=== PATIENT | male | born 2000 | race Caucasian/White ===

== ENCOUNTER 2022-07-19 11:01 | Emergency (ER) | payer OTHER, SELFPAY ==
[2022-07-19 11:35] VITALS: BP 151/81; PULSE 76; RESP 16; TEMP 36.4; O2SAT 98
--- NOTE | 2022-07-19 12:14 | ED.EYEPROB ---
HPI - Eye Problem General Chief complaint: Eye Problems Stated complaint: eye irritation Time Seen by Provider: 07/19/22 12:15 Source: patient Mode of arrival: ambulatory Limitations: no limitations History of Present Illness HPI Narrative: 21-year-old male presented for complaint of bilateral eye redness and irritation for the last 2 days. He endorses he slept in his contacts the night before symptoms started. He states he woke with eyes feeling very dry, and he now has light sensitivity and clear drainage/tearing frequently. The contacts are not to be slept in, and are changed [id number]. Denies pus or crust to the eyes vision changes, headache, nausea, vomiting, fevers or chills. He has not applied anything to his eyes. He has not been wearing his contact lenses. He denies sick contacts. MD chief complaint: eye pain Related Data Allergies Allergy/AdvReac Type Severity Reaction Status Date / Time No Known Allergies Allergy Verified 07/19/22 12:00 Review of Systems Review of Systems: CONSTITUTIONAL: Denies body aches, fever, chills EYES: Per HPI ENT: Denies rhinorrhea, congestion, sore throat, or otalgia. CARDIOVASCULAR: Denies chest pain, palpitations RESPIRATORY: Denies cough or dyspnea. GASTROINTESTINAL: Denies abdominal pain, nausea, vomiting, or diarrhea. SKIN: Denies rash, itching, or wounds. MUSCULOSKELETAL: Denies back pain, joint pain, or myalgia. NEUROLOGIC: Denies headache, numbness, tingling, or weakness. All systems reviewed & are unremarkable except as noted in HPI and below PMFSH Past Medical History Medical History No pertinent past medical history Comments At time of signature, I have reviewed and agree with nursing past medical, surgical, social and family history unless otherwise noted. Please see nursing chart for further information. There is no relevant family history pertinent to the presenting complaint Exam Narrative: GENERAL: Well-appearing HEAD: Normocephalic, atraumatic. EYES: bilateral conjunctival injection, No purulent drainage; mild periorbital swelling, left worse than right. PERRLA, EOMI. Lid eversion shows no foreign bodies. No corneal abrasion. ENT: Mucous membranes pink and moist. No rhinorrhea. TMs normal bilaterally. Throat normal. Uvula midline. CHEST: Clear to auscultation. HEART: Regular rate and rhythm. ABDOMEN: Soft, nontender, nondistended SKIN: Warm, dry, no rash. Normal skin turgor. Course Course Emergency Course: Patient is aware of diagnosis, understands and agrees to treatment plan. Anticipatory guidance given. Patient agrees to follow-up as directed and is aware of reasons to seek care at the emergency department. Portions of this record may have been created with voice recognition software Level of Care: Express Care Visit Vital Signs Vital signs: Vital Signs Temperature 97.6 F 07/19/22 11:35 Pulse Rate 76 07/19/22 11:35 Respiratory Rate 16 07/19/22 11:35 Blood Pressure 151/81 H 07/19/22 11:35 Pulse Oximetry 98 07/19/22 11:35 Oxygen Delivery Room Air 07/19/22 11:35 Temperature 97.6 F 07/19/22 11:35 Pulse Rate 76 07/19/22 11:35 Respiratory Rate 16 07/19/22 11:35 Blood Pressure 151/81 H 07/19/22 11:35 Pulse Oximetry 98 07/19/22 11:35 Oxygen Delivery Room Air 07/19/22 11:35 Procedures FB Removal Eye Foreign Body #1: Foreign Body Removal Date: 07/19/22 Topical anesthetic used: tetracaine Foreign body: other (none) Evidence of corneal penetration: No Technique: irrigation and eye wash bottle Procedure performed under: other (ford lamp) Patient tolerated procedure: well and no complications Foreign Body Removal Narrative: no corneal abrasion on exam. MDM - Eye Problem MDM Narrative Medical decision making narrative: PE c/w conjunctivitis likely 2/2 sleeping in contacts. Advi
== END 2022-07-19 12:38 | disposition home or self-care (01) ==
PROVIDERS: Emergency Provider Nurse Practitioner Family; PCP Internal Medicine
DX: H10.9 Unspecified conjunctivitis (principal); F41.9 Anxiety disorder, unspecified; F32.A Depression, unspecified; F90.9 Attention-deficit hyperactivity disorder, unspecified type; Z86.16 Personal history of COVID-19
CPT/HCPCS: 99213; A9270; G0463

== ENCOUNTER 2023-01-18 11:51 | Emergency (ER) | payer OTHER, SELFPAY ==
[2023-01-18 12:02] VITALS: BP 136/74; PULSE 56; RESP 16; TEMP 36.4; O2SAT 100
--- NOTE | 2023-01-18 12:05 | PC.NURSE ---
Pt.stated refused visual acuity because He cant open left eye & everything is blurry.
--- NOTE | 2023-01-18 12:16 | ED.EYEPROB ---
HPI - Eye Problem General Chief complaint: Eye Problems Stated complaint: Lt Eye Irritation Time Seen by Provider: 01/18/23 12:16 Source: patient, RN notes reviewed and old records reviewed Mode of arrival: ambulatory Limitations: no limitations History of Present Illness HPI Narrative: 22-year-old male presents to the [facility] with complaints of left eye irritation. Patient states the pain started at 11:00 p.m. last night. Does normally wear contact lenses. Denies any trauma. States that does not stop tearing Was prescribed ketorolac eyedrops approximately 6 months ago, started using them. Believes he is up-to-date on his tetanus Treatments Prior to Arrival: other (old RX -ketorolac) Related Data Patient tetanus UTD: Yes Home Medications Medication Instructions Recorded Confirmed escitalopram oxalate 20 mg tablet 20 mg PO DAILY 07/19/22 01/18/23 (Lexapro) methylphenidate HCl 20 mg 20 mg PO QAM 07/19/22 01/18/23 tablet,extended release Allergies Allergy/AdvReac Type Severity Reaction Status Date / Time No Known Allergies Allergy Verified 01/18/23 11:58 Review of Systems Review of Systems: All systems reviewed & are unremarkable except as noted in HPI and below Constitutional: Constitutional: Reports no additional constitutional complaints Eyes: Eyes: Reports as per HPI, Denies blurry vision, Denies exophthalmos, Denies change in vision, Reports irritation, Reports eye pain and Reports photophobia ENT: Reports system reviewed and no additional complaints, except as documented Cardiovascular: Cardiovascular: Reports no additional cardiovascular complaints, Denies chest pain and Denies dyspnea Respiratory: Respiratory: Reports no additional respiratory complaints, Denies chest congestion, Denies cough and Denies dyspnea Gastrointestinal: Gastrointestinal: Reports no additional gastrointestinal complaints, Denies abdominal pain, Denies nausea and Denies vomiting Musculoskeletal: Musculoskeletal: Reports no additional musculoskeletal complaints Integumentary/Breasts: Skin/Breast: Reports system reviewed and no additional complaints, except as docu Neurologic: Reports system reviewed and no additional complaints, except as documented Psychiatric: Psychiatric: Reports no additional psychiatric complaints Allergic/Immunologic: Allergic/Immunologic: Reports no additional allergic/immunologic complaints PMFSH Past Medical History Medical History No pertinent past medical history Comments At the time of my signature, I reviewed and agree with the nursing past medical, surgical, social, and family history. There is no relevant family history pertinent to the patient complaint. Exam Const: General: cooperative, healthy appearing, comfortable, no acute distress, well developed, alert and well nourished Nutritional Appearance: well nourished Orientation/consciousness: patient oriented x3 Limitations: no limitations HENMT: Head: normal to inspection Ears: hearing grossly normal bilaterally and external ears normal Face/Nose/Sinus: Normal external nose present, Normal nares present, Normal nasal mucous membranes and turbinates present and normal facial exam Face and sinus: normal facial exam Eyes: General: appearance normal, both eyes and all related structures Alignment and Position: alignment normal Periorbital: periorbital findings normal Conjunctivae: conjunctivae normal Sclera: sclerae normal Cornea: corneas abnormal on the left abrasion curved and at the following clock position (6) and fluorescein used Pupils: Equal, round and reactive pupils present EOM: EOMs intact bilaterally Eyes/upper lids images: 1. Semi circular abrasion to the cornea noted Neck: Neck: normal visual inspection, full ROM, no lymphadenopathy and no meningeal signs Chest: Chest palpation & inspection: normal inspection of the chest Resp: Effort & Inspection:
== END 2023-01-18 12:32 | disposition home or self-care (01) ==
PROVIDERS: Emergency Provider Nurse Practitioner; PCP Internal Medicine
DX: S05.02XA Injury of conjunctiva and corneal abrasion without foreign body, left eye, initial encounter (principal); X58.XXXA Exposure to other specified factors, initial encounter; Z86.16 Personal history of COVID-19; F41.9 Anxiety disorder, unspecified; F32.A Depression, unspecified; F90.9 Attention-deficit hyperactivity disorder, unspecified type
CPT/HCPCS: 99213; A9270; G0463

== ENCOUNTER 2023-05-07 09:40 | Emergency (ER) | payer OTHER, SELFPAY ==
[2023-05-07 10:09] VITALS: BP 138/95; PULSE 65; RESP 18; TEMP 36.7; O2SAT 100
--- NOTE | 2023-05-07 10:39 | ED.URI ---
HPI - URI/Sore Throat General Chief Complaint: Upper Respiratory Infection Stated Complaint: throat irritation History of Present Illness HPI Narrative: 22-year-old male presented for complaint of sore throat for 3 days. Endorses painful swallow. History of strep infections, states this feels similar. He denies any associated symptoms. Not taking anything for symptoms Related Data Allergies Allergy/AdvReac Type Severity Reaction Status Date / Time orange (food color) AdvReac Hives Verified 05/07/23 10:41 Review of Systems Review of Systems: CONSTITUTIONAL: Denies body aches, fever, chills, or sweats. EYES: Denies visual changes, redness, or discharge. ENT: reports sore throat Denies rhinorrhea, congestion, or otalgia. CARDIOVASCULAR: Denies chest pain, palpitations, or edema. RESPIRATORY: Denies dyspnea. GASTROINTESTINAL: Denies abdominal pain, nausea, vomiting, or diarrhea. SKIN: Denies rash, itching, or wounds. MUSCULOSKELETAL: Denies back pain, joint pain, or myalgia. NEUROLOGIC: Denies headache PMFSH Past Medical History Medical History No pertinent past medical history Exam Narrative: GENERAL: mildly Ill-appearing, no acute distress. EYES: conjunctivae clear ENT: Mucous membranes moist. TM pearly marks with normal light reflex bilaterally; no tragal tenderness. Oropharynx severely erythematous without lesions. Tonsils 1+ without exudate. No drooling, no hoarseness, no trismus, uvula midline. No tripod positioning, hot potato voice, or soft palate swelling. NECK: Supple. No lymphadenopathy CHEST: Clear to auscultation, breath sounds equal. No respiratory distress, speaks in full sentences. HEART: Regular rate and rhythm. No murmur heard. SKIN: Warm, dry, no rash. NEURO: Alert and oriented x3. Course Course Emergency Course: Patient is aware of diagnosis, understands and agrees to treatment plan. Anticipatory guidance given. Patient agrees to follow-up as directed and is aware of reasons to seek care at the emergency department. Portions of this record may have been created with voice recognition software Level of Care: Express Care Visit Vital Signs Vital signs: Vital Signs Temperature 98.1 F 05/07/23 10:09 Pulse Rate 65 05/07/23 10:09 Respiratory Rate 18 05/07/23 10:09 Blood Pressure 138/95 H 05/07/23 10:09 Pulse Oximetry 100 05/07/23 10:09 Oxygen Delivery Room Air 05/07/23 10:09 Temperature 98.1 F 05/07/23 10:09 Pulse Rate 65 05/07/23 10:09 Respiratory Rate 18 05/07/23 10:09 Blood Pressure 138/95 H 05/07/23 10:09 Pulse Oximetry 100 05/07/23 10:09 Oxygen Delivery Room Air 05/07/23 10:09 MDM - URI/Sore Throat MDM Narrative Medical decision making narrative: Deferred strep testing, will treat based on PE and CC. Advise supportive treatments. Patient is appropriate for outpatient treatment and follow-up. Differential Diagnosis Differential diagnosis: Likely upper respiratory infection, viral infection and pharyngitis Discharge Plan Discharge Clinical Impression: Pharyngitis Patient Disposition: Home, Self-Care Condition: Stable Instructions: Antibiotic Form, Strep Throat (ED) Additional Instructions: - Take the antibiotic as directed. Fever and sore throat typically resolve within one to three days. Most patients can return to work, after 12 to 24 hours of antibiotic therapy, provided you are fever free and otherwise well. -Eat and drink things that are easy to swallow, like soft foods, cool liquids, tea with honey, or popsicles . -Salt water gargles and/or may use topical anesthetic ( Chloraseptic spray) or lozenges to relieve dryness or throat pain -Alternate Tylenol and ibuprofen as needed for pain and fever as directed. -Frequent hand washing or hand fire sprinkler installer is one of the best ways to prevent spread of infection. Throw away the toothbrush after 24hours of a
== END 2023-05-07 10:48 | disposition home or self-care (01) ==
PROVIDERS: Emergency Provider Nurse Practitioner Family; PCP Internal Medicine
DX: J02.9 Acute pharyngitis, unspecified (principal)
CPT/HCPCS: 99213; G0463

== ENCOUNTER 2023-08-01 08:04 | Emergency (ER) | payer OTHER, SELFPAY ==
[2023-08-01 08:11] VITALS: BP 148/73; PULSE 84; RESP 16; TEMP 37; O2SAT 99
--- NOTE | 2023-08-01 08:13 | ED.GENADULT ---
HPI - General Adult General Chief complaint: Upper Respiratory Infection Stated complaint: Sinus Infection and Tooth Pain Source: patient, RN notes reviewed and old records reviewed Mode of arrival: ambulatory Limitations: no limitations History of Present Illness HPI narrative: 22 year old male who presents to clinic with complaints of sinus congestion, facial pressure, headache, sinus drainage and also cough starting Tuesday. Patient states he has been taking Mucinex a.m. and p.m. and also ibuprofen and has use Flonase nasal spray. Patient does have history of strep throat 2 months ago and previous sinusitis. Patient reports that he has had sweats and felt hot but has not taken his temperature.Patient reports that he has pressure to his front teeth from his sinus problems. MD complaint: sinus congestion drainage, headache sinus pressure Onset (ago): day(s) (3) Severity: moderate Treatments prior to arrival: NSAID and other (Mucinex am and PM and Flonase) Related Data Allergies Allergy/AdvReac Type Severity Reaction Status Date / Time orange (food color) AdvReac Mild Hives Verified 08/01/23 08:12 Review of Systems Review of Systems: CONSTITUTIONAL: Denies malaise, chills,reports sweats, unknown if fever. EYES: Denies visual changes, redness, or discharge. ENT: Reports rhinorrhea, congestion, sinus pain, no otalgia and no sore throat, pressure front teeth CARDIOVASCULAR: Denies chest pain, palpitations, or edema. RESPIRATORY: Reports cough.? Denies dyspnea. GASTROINTESTINAL: Denies abdominal pain, nausea, vomiting, diarrhea SKIN: Denies rash or itching. MUSCULOSKELETAL: Denies myalgia. NEUROLOGIC: Reports headache. All systems reviewed & are unremarkable except as noted in HPI and below PMFSH Past Medical History Medical History ADHD (attention deficit hyperactivity disorder) Anxiety and depression Fracture of left wrist Sleep apnea treated with continuous positive airway pressure (CPAP) Social History Social History Smoking status: Current every day smoker Tobacco type: e-cigarettes/vaping Alcohol intake: current Alcohol use details: rare social Substance use: current Substance use type: marijuana Last use: 2-3 times a week Living arrangements: with family Occupation/Education: student Gender identity (if verbalized by the patient): Male Comments At time of signature, agree with nursing past medical, surgical, social and family history. There is no relevant family history pertinent to the presenting complaint Exam Narrative: GENERAL: Well-appearing, well-nourished, and in no acute distress. HEAD: Normocephalic EYES: PERRLA, conjunctivae clear ENT: Nares swollen and red, turbinates edematous and erythematous, clear light yellow discharge, facial sinus pressure and frontal headache. Mucous membranes moist. TM pearly marks with dull light reflex bilaterally; no tragal tenderness. Oropharynx erythematous without lesions. Tonsils not enlarged and without exudate, no drooling, no hoarseness, no trismus, uvula midline. NECK: Supple. No lymphadenopathy CHEST: Clear to auscultation, breath sounds equal. No wheezing, rhonchi, rales, or stridor. No respiratory distress, speaks in full sentences.occasional cough SAO2 99% on room air HEART: Regular rate and rhythm. No murmur heard. SKIN: Warm, dry, no rash. NEURO: Alert and oriented x3. PSYCH: Normal mood and affect Course Course Emergency Course: Patient is aware of diagnosis, understands and agrees to treatment plan.? Anticipatory guidance given.? Patient agrees to follow-up as directed and is aware of reasons to seek care at the emergency department. Portions of this record may have been created with voice recognition software Level of Care: Express Care Visit Vital Signs Vital signs: Vital Signs T
== END 2023-08-01 08:35 | disposition home or self-care (01) ==
PROVIDERS: Emergency Provider Registered Nurse; PCP Internal Medicine Gastroenterology
DX: J01.40 Acute pansinusitis, unspecified (principal); F17.290 Nicotine dependence, other tobacco product, uncomplicated; F12.90 Cannabis use, unspecified, uncomplicated
CPT/HCPCS: 99213; G0463

== ENCOUNTER 2023-11-16 08:32 | Emergency (ER) | payer OTHER, SELFPAY ==
[2023-11-16 08:49] VITALS: BP 132/72; PULSE 100; RESP 16; TEMP 36.5; O2SAT 100
--- NOTE | 2023-11-16 09:01 | ED.SKABFB ---
HPI - Skin/Abscess/Foreign Bdy General Chief complaint: Skin/Abscess/Foreign Body Stated complaint: Rash Time Seen by Provider: 11/16/23 08:56 Source: patient and RN notes reviewed Mode of arrival: ambulatory Limitations: no limitations History of Present Illness HPI narrative: Patient presents today complaining of one-week history of itching to the arms and chest with rash that appeared last night to the upper chest and left anticubital fossa. He has tried Benadryl and Zyrtec without relief. He has been working outside of his new home recently but does not specifically know anything he has come into contact with that may be causing his symptoms. Related Data Allergies Allergy/AdvReac Type Severity Reaction Status Date / Time orange (food color) AdvReac Mild Hives Verified 11/16/23 08:37 Review of Systems Review of Systems: CONSTITUTIONAL: Denies body aches, fever, chills, or sweats. EYES: Denies visual changes, redness, or discharge. ENT: Denies rhinorrhea, congestion, sore throat, or otalgia. CARDIOVASCULAR: Denies chest pain, palpitations, or edema. RESPIRATORY: Denies cough or dyspnea. GASTROINTESTINAL: Denies abdominal pain, nausea, vomiting, or diarrhea. GENITOURINARY: Denies dysuria or hematuria. SKIN: Pruritic rash MUSCULOSKELETAL: Denies back pain, joint pain, or myalgia. NEUROLOGIC: Denies headache, numbness, tingling, or weakness. PSYCH: Denies depression or anxiety. [facility] Past Medical History Medical History ADHD (attention deficit hyperactivity disorder) Anxiety and depression Fracture of left wrist Sleep apnea treated with continuous positive airway pressure (CPAP) Social History Social History Smoking status: Current every day smoker Tobacco type: e-cigarettes/vaping Alcohol intake: current Alcohol use details: rare social Substance use: current Substance use type: marijuana Last use: 2-3 times a week Living arrangements: with family Occupation/Education: student Gender identity (if verbalized by the patient): Male Comments At time of signature, I have reviewed and agree with nursing past medical, surgical, social and family history unless otherwise noted. Please see nursing chart for further information. There is no relevant family history pertinent to the presenting complaint Exam Narrative: GENERAL: Well-appearing, well-nourished, and in no acute distress. HEAD: Normocephalic, atraumatic. EYES: EOMI. No redness or drainage. Conjunctivae normal. ENT: Mucous membranes pink and moist. NECK: Normal AROM. CHEST: No respiratory distress. EXTREMITIES: Normal range of motion. No edema. SKIN: Warm, dry. Capillary refill normal. Normal skin turgor. Mildly erythematous maculopapular rash to the upper chest and anterior neck extending to the right lateral and posterior neck. Same rash in a large rash to the left antecubital fossa and midline lower abdomen. NEURO: No focal deficits. Alert and oriented x3. Gait steady. PSYCH: Normal affect. No signs of depression or anxiety. Course Course Level of Care: Express Care Visit Vital Signs Vital signs: Vital Signs Temperature 97.7 F 11/16/23 08:49 Pulse Rate 100 11/16/23 08:49 Respiratory Rate 16 11/16/23 08:49 Blood Pressure 132/72 11/16/23 08:49 Pulse Oximetry 100 11/16/23 08:49 Oxygen Delivery Room Air 11/16/23 08:49 Temperature 97.7 F 11/16/23 08:49 Pulse Rate 100 11/16/23 08:49 Respiratory Rate 16 11/16/23 08:49 Blood Pressure 132/72 11/16/23 08:49 Pulse Oximetry 100 11/16/23 08:49 Oxygen Delivery Room Air 11/16/23 08:49 Reviewed MDM - Skin/Abscess/Foreign Bdy MDM Narrative Medical decision making narrative: Rash consistent with contact dermatitis. Prescription for prednisone sent to pharmacy. Anticipatory guidance given. Differential
== END 2023-11-16 09:07 | disposition home or self-care (01) ==
PROVIDERS: Emergency Provider Nurse Practitioner; PCP Internal Medicine
DX: L25.9 Unspecified contact dermatitis, unspecified cause (principal); F17.290 Nicotine dependence, other tobacco product, uncomplicated
CPT/HCPCS: 99213; G0463

== ENCOUNTER 2023-11-20 11:12 | Emergency (ER) | payer OTHER, SELFPAY ==
--- NOTE | 2023-11-20 11:21 | ED.GENADULT ---
HPI - General Adult General Chief complaint: Skin/Abscess/Foreign Body Stated complaint: rash Time Seen by Provider: 11/20/23 11:22 Source: patient Mode of arrival: ambulatory Limitations: no limitations History of Present Illness HPI narrative: 22-year-old male patient presents to [facility] with complaints of a rash. Patient seen here about 4 days ago was diagnosed with contact dermatitis and received a 8 day prednisone taper. Patient states his rash has gotten worse continues to itch. Patient states he is unaware if he has come into contact with poison jose or not. Patient states he is also taking Benadryl and Zyrtec daily. Denies any topical steroids. Denies any chest pain, shortness of breath, fevers, body aches or chills. Related Data Allergies Allergy/AdvReac Type Severity Reaction Status Date / Time orange (food color) AdvReac Mild Hives Verified 11/20/23 11:16 Review of Systems Review of Systems: CONSTITUTIONAL: Denies fever, chills, or sweats. EYES: Denies visual changes, redness, or discharge. ENT: Denies rhinorrhea, congestion, sore throat, or otalgia. CARDIOVASCULAR: Denies chest pain, palpitations, or edema. RESPIRATORY: Denies cough or dyspnea. GASTROINTESTINAL: Denies abdominal pain, nausea, vomiting, or diarrhea. GENITOURINARY: Denies dysuria or hematuria. SKIN: Positive rash with itching. MUSCULOSKELETAL: Denies back pain, joint pain, or myalgia. NEUROLOGIC: Denies headache, numbness, or weakness. PSYCHIATRIC: Denies anxiety or depression. [facility] Past Medical History Medical History ADHD (attention deficit hyperactivity disorder) Anxiety and depression Fracture of left wrist Sleep apnea treated with continuous positive airway pressure (CPAP) Social History Social History Smoking status: Current every day smoker Tobacco type: e-cigarettes/vaping Alcohol intake: current Alcohol use details: rare social Substance use: current Substance use type: marijuana Last use: 2-3 times a week Living arrangements: with family Occupation/Education: student Gender identity (if verbalized by the patient): Male Comments At the time of my signature I agree with nursing past medical history, surgical, social, and family history. There is no relevant family history pertinent to the presenting complaint. Exam Narrative: GENERAL: Well-appearing, well-nourished, and in no acute distress. HEAD: Normocephalic, atraumatic. EYES: PERRLA and EOMI. ENT: Nares clear, no rhinorrhea or epistaxis. Mucous membranes moist. NECK: Supple. No lymphadenopathy CHEST: Clear to auscultation. No respiratory distress. HEART: Regular rate and rhythm. No murmur heard. Normal peripheral pulses. ABDOMEN: Soft, nontender, nondistended, normal active bowel sounds. EXTREMITIES: Normal range of motion. No edema. SKIN: Warm, dry, patient has maculopapular rash noted to various areas of the trunk to bilateral upper extremities. Patient states it is itchy. No open wounds or drainage noted. NEURO: No focal deficits. Alert and oriented x3. Course Course Level of Care: Express Care Visit Vital Signs Vital signs: Vital Signs Temperature 36.2 C L 11/20/23 11:34 Pulse Rate 62 11/20/23 11:34 Respiratory Rate 16 11/20/23 11:34 Blood Pressure 148/88 H 11/20/23 11:34 Pulse Oximetry 100 11/20/23 11:34 Oxygen Delivery Room Air 11/20/23 11:34 Temperature 36.2 C L 11/20/23 11:34 Pulse Rate 62 11/20/23 11:34 Respiratory Rate 16 11/20/23 11:34 Blood Pressure 148/88 H 11/20/23 11:34 Pulse Oximetry 100 11/20/23 11:34 Oxygen Delivery Room Air 11/20/23 11:34 Vital signs reviewed. The patient has been informed that they may have pre-hypertension or Hypertension based on a BP reading in the department. I recommend that the patient call the primary care provider listed on the
[2023-11-20 11:34] VITALS: BP 148/88; PULSE 62; RESP 16; TEMP 36.2; O2SAT 100
== END 2023-11-20 11:57 | disposition home or self-care (01) ==
PROVIDERS: Emergency Provider Nurse Practitioner Family; PCP Internal Medicine
DX: L24.9 Irritant contact dermatitis, unspecified cause (principal); F17.290 Nicotine dependence, other tobacco product, uncomplicated; F12.90 Cannabis use, unspecified, uncomplicated; G47.30 Sleep apnea, unspecified
CPT/HCPCS: 99213; G0463